=== PATIENT | male | born 1980 | race Caucasian/White ===

== ENCOUNTER 2016-10-17 15:54 | Emergency (ER) | payer OTHER ==
[~2016-10-17] VITALS: Ht 190.5 cm; Wt 136.1 kg
[~2016-10-17 15:54] MED LIST: CEPH-38 PO; HYDR1TAB PO
--- NOTE | 2016-10-17 17:58 | Diagnostic Imaging Report ---
INDICATION: Left leg pain. Left leg venous Doppler study was performed in the routine fashion with color flow Doppler and waveform analysis. FINDINGS: The left common femoral vein, superficial femoral vein, popliteal vein and visualized portion of the posterior tibial vein show normal compressibility and venous flow patterns. There is normal augmentation. IMPRESSION: No evidence of deep vein thrombosis of the major veins of the left leg. Dictated by: Dictated on workstation # [id number]
[2016-10-17] MEDS ORDERED: METH4TAB PO (17:59)
--- NOTE | 2016-10-17 17:59 | ED Lower Extremity ---
General Chief Complaint: Lower Extremity Stated Complaint: L LEG PAIN/NUMBNESS Nursing Triage Note: c/o pain to left knee. Pt reports swelling to left foot. Onset 2 days ago. Noticed left hip pain this morning. Nursing Sepsis Screen: No Definite Risk Allergies and Home Medications Allergies Coded Allergies: No Known Drug Allergies (Unverified , 05/29/11) Home Medications Cephalexin Monohydrate 500 Mg Capsule, 1 EACH PO TID for 5 Days Prescribed by: MICKY OLIVO on 05/29/11 1848 Hydrocodone Bit/Acetaminophen 1 Each Tablet, 1-2 EACH PO Q4HR PRN, #10 Prescribed by: MICKY OLIVO on 05/29/11 1848 Past Qtiqwaq-Uwuhhv-Evitzr Hx Patient Social History Alcohol Use: Occasionally Uses Recreational Drug Use: No Smoking Status: Light Tobacco Smoker Recent Foreign Travel: No Contact w/Someone Who Travel: No Recent Infectious Disease Expo: No Surgeries History of Surgeries: No Respiratory History of Respiratory Disorde: No Cardiovascular History of Cardiac Disorders: No Neurological History of Neurological Disord: No Genitourinary History of Genitourinary Disor: No Gastrointestinal History of Gastrointestinal Di: No Musculoskeletal History of Musculoskeletal Dis: No Endocrine History of Endocrine Disorders: No HEENT History of HEENT Disorders: No Cancer History of Cancer: No Psychosocial History of Psychiatric Problem: No Integumentary History of Skin or Integumenta: No Blood Transfusions History of Blood Disorders: No Physical Exam Vital Signs Vital Sign - Last 12Hours 10/17/16 16:20 Temp 98.1 Pulse 84 Resp 16 B/P (MAP) 135/118 Pulse Ox 98 O2 Delivery Room Air Capillary Refill : Less Than 3 Seconds Progress/Results/Core Measures Results/Orders My Orders Orders - HOLLI BOSE DO Us Venous Lower Ext Lt (10/17/16 16:31) Vital Signs/I&O Vital Sign - Last 12Hours 10/17/16 16:20 Temp 98.1 Pulse 84 Resp 16 B/P (MAP) 135/118 Pulse Ox 98 O2 Delivery Room Air Blood Pressure Mean: 124 Departure Impression Impression: Primary Impression: Left leg pain Disposition: 01 HOME, SELF-CARE Condition: Stable Departure-Patient Inst. Referrals: JAZLYN CALVERT MD (PCP/Family) Primary Care Physician Patient Instructions: Lower Extremity Muscle Strain (DC), Muscle and Bone Pain (DC) Add. Discharge Instructions: ALTERNATE ICE AND HEAT TO AREA AT 20 MINUTE INTERVALS [facility] WRAP TO AREA NEEDED FOR PAIN OR SWELLING AVOID CLIMBING LADDERS OR STAIRS, AVOID SQUATTING, ETC FOLLOW UP WITH DR. CALVERT THIS WEEK FOR FURTHER CARE All discharge instructions reviewed with patient and/or family. Voiced understanding. Scripts Methylprednisolone (Medrol) 4 Mg Tab.ds.pk 4 MG PO UD, #1 PKG Prov: HOLLI BOSE DO 10/17/16 HOLLI BOSE DO Oct 17, 2016 17:59
[2016-10-17] MEDS ORDERED: predniSONE 20 MG TAB PO ONE (18:00)
[2016-10-17 18:40] VITALS: BP 132/94
== END 2016-10-17 18:40 | disposition home or self-care (01) ==
LOC: ER 15:54
DX: M25.562 Pain in left knee (principal); F17.200 Nicotine dependence, unspecified, uncomplicated
CPT/HCPCS: 99283